=== PATIENT | female | born 2000 | race Asian ===

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

== ENCOUNTER 2022-09-08 23:18 | Emergency (ER) | payer OTHER ==
[~2022-09-08] VITALS: Ht 180.3 cm; Wt 71.2 kg
[2022-09-08 23:20] VITALS: BP 129/86; TEMP 99
== END 2022-09-09 00:15 | disposition home or self-care (01) ==
LOC: ED 23:18
PROC: 0CQ0XZZ Repair Upper Lip, External Approach (ICD-10-PCS; principal; 2022-09-08)
DX: S01.511A Laceration without foreign body of lip, initial encounter (principal); W22.8XXA Striking against or struck by other objects, initial encounter; Y93.89 Activity, other specified; Y92.89 Other specified places as the place of occurrence of the external cause
CPT/HCPCS: 99282

== ENCOUNTER 2022-09-16 13:14 | Emergency (ER) | payer OTHER ==
[~2022-09-16] VITALS: Ht 180.3 cm; Wt 73.9 kg
[2022-09-16 13:24] VITALS: BP 112/69; TEMP 97.9
== END 2022-09-16 14:09 | disposition home or self-care (01) ==
LOC: ED 13:14
DX: Z48.02 Encounter for removal of sutures (principal)